=== PATIENT | male | born 1960 | race Caucasian/White ===

== ENCOUNTER → 2017-09-09 | Emergency (ER) | payer OTHER ==
[~2017-09-09] VITALS: Ht 180.3 cm; Wt 66.7 kg
[~2017-09-09] MED LIST: BACTRIM DS TAB1 EACH PO; CANABIS OIL; CEPHALEXIN500 MG PO; DOC-Q-LACE100 MG PO; LEVAQUIN750 MG PO; MIRALAX17 GM PO; MS CONTIN60 MG PO; NORCO 5-325 TA1 EACH PO; OXYCODONE HCL E10 MG PO
== END ==
LOC: ED 08:10
DX: K62.89 Other specified diseases of anus and rectum (principal); K76.9 Liver disease, unspecified; F17.200 Nicotine dependence, unspecified, uncomplicated; Z88.1 Allergy status to other antibiotic agents; Z91.030 Bee allergy status; Z79.899 Other long term (current) drug therapy
CPT/HCPCS: 74177; 80053; 81001; 82378; 85025; 96360; 99284; J7030; Q9967

== ENCOUNTER 2017-11-13 07:18 | Day surgery (SDC) | payer OTHER ==
[~2017-11-13] VITALS: Ht 177.8 cm; Wt 66.2 kg
--- NOTE | 2017-11-13 09:34 | NUR ---
11/13/17 0934 Heather Acosta PT ARRIVED TO PACU. NPA IN PLACE. X-RAY AT BEDSIDE (WAITING FOR ORDER)
[2017-11-13] MEDS ORDERED: IBUPROFEN600 MG PO (09:48)
[2017-11-13] MEDS ORDERED: MAPAP325 MG PO (09:49)
[2017-11-13] MEDS ORDERED: HYDROCODON-ACE1 EA10 PO (09:49)
--- NOTE | 2017-11-15 13:48 | OR ---
[facility] [address], [place] [address] Signed DATE OF OPERATION: 11/13/2017 SURGEON: Cheryl Chavez MD PREOPERATIVE DIAGNOSIS: Stage IV rectal cancer. POSTOPERATIVE DIAGNOSIS: Stage IV rectal cancer. PROCEDURES: 1. Placement of left subclavian Bard port catheter. 2. Surgeon-directed fluoroscopy. ANESTHESIA: Intravenous sedation with local (Josh Marcum CRNA). INDICATION: This 57-year-old white man, who is referred by Dr. Ragland for consideration of Port-A-Cath for treatment of stage IV rectal cancer. He is a primary patient of Arlette Mc PA-C. The patient has had rectal bleeding and was self-referred to the emergency room. Where he was noted to have a rectal mass. He was subsequently seen by Arlette Mc (in distinction to my initial note, which was incorrect), who then coordinated further evaluation and treatment. He was seen at [facility] and underwent a colonoscopy confirming a rectal cancer, considered not a surgical candidate at this time due to widely metastatic disease including hepatic, pulmonary, and other metastatic lesions. Referral to Dr. Ragland was undertaken for which chemotherapy as a palliative approach was presented. A port device is needed for chemotherapy. He understands the risks of placement of the port, including, but not limited to, bleeding, infection, pneumothorax, and other unforeseen complications. Understanding this, he wished to proceed. FINDINGS: The catheter was easily placed to the left subclavian approach, showing good function of the catheter at conclusion. Due to his thin body habitus, there is little problem in locating the port for access. DESCRIPTION OF PROCEDURE: The patient was brought to the operating room, placed in mild Trendelenburg position and Electronically Signed By: CHERYL CHAVEZ MD 11/15/17 1348 PATIENT NAME: YOLANDE MONTES OPERATIVE REPORT DATE OF : 60 PHYSICIAN: CHERYL CHAVEZ MD REPORT #: [id number] REPORT IS CONFIDENTIAL AND NOT TO BE RELEASED WITHOUT AUTHORIZATION [facility] [address], [place] [address] Signed the upper torso clipped and prepared with a chlorhexidine solution and draped sterilely. He received preoperative antibiotic Ancef. Sequential compression device stockings used and heparin subcutaneously administered. Intravenous sedation was induced after sterile preparation of the area and sterile draping. A 1% lidocaine was injected in the left infraclavicular space. Using the Seldinger technique, the left subclavian vein was percutaneously accessed on first pass showing dark nonpulsatile blood. A flexible J-wire was passed down the needle and the needle was removed. Fluoroscopy was used to confirm the wire in the right heart system. A transverse incision was made over the left pectoralis after infiltration of local anesthesia and a pocket created. At the site where the wire emanating from the chest wall, the wire site was incised with an #11 blade and subsequently dilator and peel-away sheath introducer passed over the wire. The wire and the dilator were removed and a previously inspected and irrigated Groshong-type catheter was passed down the peel-away introducer. The catheter was stabilized and the introducer removed fully. Aspiration on the catheter showed dark nonpulsatile blood. Fluoroscopy was then used once again after putting the patient in a neutral position and withdrawal of the catheter under direct visualization allowing for situated in the tip of the catheter in the superior vena cava area. The port device was partially secured to the pectoralis fascia. Using the tunneling device, the catheter was delivered to the pocket, trimmed to the appropriate length and secured to the port device within close collar per sleep lab technologist instructions. The port was secured to the pectoralis fascia, but at conclusion of that, it appeared that the catheter was a bit kinked. On that basis, the catheters were freed from the pectoralis fascia carefully controlled and redundant catheter transected and re-application to the port with the collar once again undertaken. It was secured once again to the pectoralis fascia without any kink in the catheter itself and accessed and found to be highly functional. The port site was then reapproximated with interrupted 2-0 Vicryl in the subcutaneous space closing the pocket completely. The skin was closed with running subcuticular 3-0 Vicryl. Steri-Strips were applied to the initial puncture site and the incision. The access to the port was undertaken percutaneously with angled Brown needle showing good withdrawal of blood and easy flushing with heparinized saline. A Mepilex silver sponge dressing was applied as was an OpSite. The patient was taken to recovery room in good condition. A postprocedure chest x-ray was performed, which showed the catheter to be in the superior vena cava and no evidence of complication of pneumothorax or other problem. Cheryl Chavez MD Electronically Signed By: CHERYL CHAVEZ MD 11/15/17 1348 PATIENT NAME: YOLANDE MONTES OPERATIVE REPORT DATE OF : 60 PHYSICIAN: CHERYL CHAVEZ MD REPORT #: [id number] REPORT IS CONFIDENTIAL AND NOT TO BE RELEASED WITHOUT AUTHORIZATION [facility] [address] [place], [place] [address] Signed /[facility] /[id number] cc: Arlette Mc PA-C Electronically Signed By: CHERYL CHAVEZ MD 11/15/17 1348 PATIENT NAME: YOLANDE MONTES OPERATIVE REPORT DATE OF : 60 PHYSICIAN: CHERYL CHAVEZ MD REPORT #: [id number] REPORT IS CONFIDENTIAL AND NOT TO BE RELEASED WITHOUT AUTHORIZATION
[2017-11-21] MEDS ORDERED: OXYCONTIN60 MG PO (09:42)
[2017-12-05] MEDS ORDERED: ONDANSETRON ODT8 MG PO (09:35)
[2017-12-05] MEDS ORDERED: DEXAMETHASONE4 MG PO (09:36)
[2017-12-05] MEDS ORDERED: LORAZEPAM1 MG PO (09:38)
[2018-01-30] MEDS ORDERED: OXYCODONE HCL10 MG PO (09:30)
[2018-02-27] MEDS ORDERED: AMLODIPINE BESY10 MG PO (09:35)
[2018-02-27] MEDS ORDERED: MIRALAX17 GM PO (09:36)
== END 2017-11-13 10:50 | disposition home or self-care (01) ==
LOC: DS 07:18 → OPS 07:18 → DS 08:30 → OPS 08:30
PROVIDERS: Surgery
PROC: B517YZA Fluoroscopy of Left Subclavian Vein using Other Contrast, Guidance (ICD-10-PCS; 2017-11-13)
PROC: 3E03305 Introduction of Other Antineoplastic into Peripheral Vein, Percutaneous Approach (ICD-10-PCS; 2017-11-13)
PROC: 05H633Z Insertion of Infusion Device into Left Subclavian Vein, Percutaneous Approach (ICD-10-PCS; principal; 2017-11-13 08:30)
DX: C20 Malignant neoplasm of rectum (principal); F17.210 Nicotine dependence, cigarettes, uncomplicated; K21.9 Gastro-esophageal reflux disease without esophagitis; Z88.1 Allergy status to other antibiotic agents; Z91.030 Bee allergy status; Z98.890 Other specified postprocedural states
CPT/HCPCS: 00532; 71045; 77001; C1788; J0690; J1644; J2250; J2704; J3010; J7120

== ENCOUNTER 2018-05-13 13:57 | Emergency (ER) | payer OTHER ==
[~2018-05-13] VITALS: Ht 177.8 cm; Wt 54.1 kg
[~2018-05-13 13:57] MED LIST changes: +AMLODIPINE BESY10 MG PO; +DEXAMETHASONE4 MG PO; +HYDROCODON-ACE1 EA10 PO; +IBUPROFEN600 MG PO; +LORAZEPAM1 MG PO; +MAPAP325 MG PO; +ONDANSETRON ODT8 MG PO; +OXYCODONE HCL10 MG PO; +OXYCONTIN60 MG PO
[2018-05-13] MEDS ORDERED: LACTULOSE10 GM/15 M PO (17:21)
== END 2018-05-13 17:40 | disposition home or self-care (01) ==
LOC: ED 13:57
DX: K59.01 Slow transit constipation (principal); Z87.891 Personal history of nicotine dependence; Z88.8 Allergy status to other drugs, medicaments and biological substances; Z79.899 Other long term (current) drug therapy
CPT/HCPCS: 74022; 80053; 81001; 83690; 85025; 85610; 85730; 96360; 96361; 99284; J7030

== ENCOUNTER 2018-06-10 23:28 | Observation (INO) | payer OTHER ==
[~2018-06-10] VITALS: Ht 177.8 cm; Wt 61.5 kg
--- OUTSIDE RECORDS SUMMARY | ~2018-06-10 | XMS | Clinical Summary ---
Demographics + + + | Address | [address] | | | [place] [address] | + + + | Home Phone | | + + + | Preferred Language | Unknown | + + + | Marital Status | Unmarried Domestic Partner | + + + | Episcopalian Affiliation | CHR | + + + | Race | White | + + + | Ethnic Group | Not or | + + + Author + + + | Author | [facility] | + + + | Organization | [facility] | + + + | Address | Unknown | + + + | Phone | Unavailable | + + + Support + + +---------+ + | Name | Relationship | Address | Phone | + + +---------+ + | Sandra Cramer | ECON | Unknown | | + + +---------+ + | Samson Patiño | ECON | Unknown | | + + +---------+ + Care Team Providers + +------+ + | Care Washing Tub Operator Name | Role | Phone | + +------+ + | Arlette Mc PA-C | PP | | + +------+ + Source Comments GOMEZ is fully live on both [facility] and [facility] InPatient.[facility] Allergies + + + + + + | Active Allergy | Reactions | Severity | Noted | Comments | | | | | Date | | + + + + + + | Azithromycin | Dizziness | | 10/02/20 | Didn't feel right | | | | | 17 | | + + + + + + | Hymenoptera | Hives | | 12 | | | Allergenic Extract | | | 17 | | + + + + + + Current Medications + + +--------+---------+------+------+-------+ | Prescription | Sig. | Disp. | Refills | Star | End | Statu | | | | | | t | Date | s | | | | | | Date | | | + + +--------+---------+------+------+-------+ | oxyCODONE | | | | 11/2 | | Activ | | (immediate release) | | | | 8/20 | | e | | 10 mg oral tablet | | | | 17 | | | + + +--------+---------+------+------+-------+ | POLYETHYLENE | Take by mouth. | | | | | Activ | | GLYCOL 3350 (MIRALAX | | | | | | e | | ORAL) | | | | | | | + + +--------+---------+------+------+-------+ | DOK 100 mg oral | Take 100 mg by mouth | | 0 | 11/2 | | Activ | | capsule | once daily. | | | 9/20 | | e | | | | | | 17 | | | + + +--------+---------+------+------+-------+ | morphine ER (MS | Take 1 tablet by | 60 | 0 | 01/0 | | Activ | | CONTIN) 60 mg oral | mouth every twelve | tablet | | 3/20 | | e | | tablet extended | hours. 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) | 10/25/2017 | + + + | Rectal cancer metastasized to liver (HCC) | 10/03/2017 | + + + + + | Overview: MSi intact by IHC | + + Family History + + +------+ + | Medical History | Relation | Name | Comments | + + +------+ + | Hypertension | Father | | | + + +------+ + | Stroke | Father | | | + + +------+ + | Colon Cancer | Maternal | | or rectal cancer | | | Grandfath | | | | | er | | | + + +------+ + | Liver Disease | Maternal | | | | | Grandfath | | | | | er | | | + + +------+ + | Prostate Cancer | Maternal | | | | | Grandfath | | | | | er | | | + + +------+ + | Other | Mother | | varicose veins | + + +------+ + | Liver Disease | Sister | | | + + +------+ + + +------+ + + | Relation | Name | Status | Comments | + +------+ + + | Father | | | | + +------+ + + | Maternal Grandfather | | | | + +------+ + + | Mother | | Alive | | + +------+ + + | Sister | | | | + +------+ + + Social History + + + +--------+------+ | Tobacco Use | Types | Packs/Day | Years | Date | | | | | Used | | + + + +--------+------+ | Current Every Day | Cigarettes | 0.1 | 40 | | | Smoker | | | | | + + + +--------+------+ + +---+---+---+ | Smokeless Tobacco: | | | | | Never Used | | | | + +---+---+---+ + + +---------+ + | Alcohol Use | Drinks/We | oz/Week | Comments | | | ek | | | + + +---------+ + | No | | | | + + +---------+ + + + + | Sex Assigned at | Date Recorded | | | | + + + | Not on file | | + + + Last Filed Vital Signs + + + + | Vital Sign | Reading | Time Taken | + + + + | Blood Pressure | 139/94 | 10/24/2017 4:20 PM PST | + + + + | Pulse | 62 | 10/24/2017 4:20 PM PST | + + + + | Temperature | 36.5 C (97.7 F) | 10/24/2017 4:20 PM PST | + + + + | Respiratory Rate | 16 | 10/24/2017 4:20 PM PST | + + + + | Oxygen Saturation | 99% | 10/24/2017 4:20 PM PST | + + + + | Inhaled Oxygen | - | - | | Concentration | | | + + + + | Weight | 68.9 kg (151 lb 14.4 | 10/24/2017 4:20 PM PST | | | oz) | | + + + + | Height | 177.8 cm (5' 10") | 10/24/2017 4:20 PM PST | + + + + | Body Mass Index | 21.8 | 10/24/2017 4:20 PM PST | + + + + Plan of Treatment + + + + + | Health Maintenance | Due Date | Last Done | Comments | + + + + + | INFLUENZA VACCINE | | | | | (FLU SHOT) | 8 | | | + + + + + Results Not on filefrom Last 3 Months Insurance + +--------+ +--------+-------+---------+ | Payer | Benefi | Subscriber | Type | Phone | Address | | | t Plan | ID | | | | | | / | | | | | | | Group | | | | | + +--------+ +--------+-------+---------+ | JUNIOR HIGH MATH TEACHER MEDICAID | JUNIOR HIGH MATH TEACHER | xxxxxxxx | Medica | | | | | [place] | | id | | | | | [place] | | | | | + +--------+ +--------+-------+---------+ + +--------+ +--------+ + + | Guarantor Name | Accoun | Relation to | Date | Phone | Billing Address | | | t Type | Patient | of | | | | | | | | | | + +--------+ +--------+ + + | YOLANDE PATIÑO | Person | Self [birth year] Home: | [address] | | | al/Fam | | 1960 | [phone] | [place] [address] | | | felix | | | [phone] | | + +--------+ +--------+ + +
--- OUTSIDE RECORDS SUMMARY | ~2018-06-10 | XMS | Clinical Summary ---
Demographics + + + | Address | [address] | | | [place] [address] | + + + | Home Phone | | + + + | Preferred Language | Unknown | + + + | Marital Status | Unmarried Domestic Partner | + + + | Advent Affiliation | CHR | + + + | Race | White | + + + | Ethnic Group | Not or | + + + Author + + + | Author | [facility] | + + + | Organization | [facility] | + + + | [...] Team Providers + +------+ + | Care Electrical Power Engineer Name | Role | Phone | + +------+ + | Arlette Mc PA-C | PP | | + +------+ + Source Comments [facility] and [facility] InPatient.[facility] Allergies + + + + + + [...] | | | + +--------+ +--------+-------+---------+ | ACTIVITIES ASSISTANT MEDICAID | ACTIVITIES ASSISTANT | xxxxxxxx | Medica | | | [...] Self | [birth year] | Home: | [address] | | | al/Fam | | 1960 | [phone] | [place] [address] | | | felix | | | [phone] | | + +--------+ +--------+ + +
--- OUTSIDE RECORDS SUMMARY | ~2018-06-10 | XMS | Clinical Summary ---
Demographics + + + | Address | [address] | | | [place] [address] | + + + | Home Phone | | + + + | Preferred Language | Unknown | + + + | Marital Status | Unmarried Domestic Partner | + + + | Mosque Affiliation | CHR | + + + | Race | White | + + + | Ethnic Group | Not or | + + + Author + + + | Author | [facility] | + + + | Organization | [facility] | + + + | [...] Team Providers + +------+ + | Care Product Safety Professional Name | Role | Phone | + +------+ + | Arlette Mc PA-C | PP | | + +------+ + Source Comments GOME[facility] is fully live on both [facility] and [facility] InPatient.[facility] Allergies + + + + + + [...] | | | + +--------+ +--------+-------+---------+ | IV THERAPY NURSE MEDICAID | IV THERAPY NURSE | xxxxxxxx | Medica | | | [...] Self | [birth year] | Home: | [address] | | | al/Fam | | 1960 | [phone] | [place] [address] | | | felix | | | [phone] | | + +--------+ +--------+ + +
[~2018-06-10 23:28] MED LIST changes: +LACTULOSE10 GM/15 M PO
--- NOTE | 2018-06-11 03:35 | NUR ---
report was received from anamaria ackerman and pt arrives to [facility] by [facility]ine and is assisted in transfering to hospital bed with 3 person assist. pt denies pain or nausea at this time. Assessment completed and pt denies needs/ concerns. pt family also at bedside. call light and fresh ice water in reach. pt to receive ns running at 125ml/hr to L fa 18ga IV. Pt agrees to use call light if symptoms develop.
--- NOTE | 2018-06-11 04:22 | NUR ---
PT REPORTS ELEVATED PAIN LEVEL. DR MESSER NOTIFIED AND NEW ORDER RECEIVED TO CONTINUE DILAUDID 0.5-1MG IVP [id number].
--- NOTE | 2018-06-11 04:40 | NUR ---
PT RESTING IN BED, REPORTS PAIN OF 5/10. 1MG DILAUDID ADMINISTERED SLOW IVP. PT REPORTS NEED TO VOID BUT STATES HE WANTS TO WAIT A FEW MINUTES BEFORE HE TRIES ONB HIS OWN WITH URINAL IN BED. CALL LIGHT AND FRESH ICE WATER IN REACH. FAMILY AT BEDSIDE.
--- NOTE | 2018-06-11 05:34 | NUR ---
PT WAS ADMITTED THIS MORNING FROM ER FOR BOWEL OBSTRUCTION AND COLON CX WITH METS TO LIVER AND LUNGS. PT'S CONDITION IS SAID TO BE TERMINAL AND WHILE IN ER PT ELECTED TO BE PLACED ON COMFORT MEASURES AND TO BECOME DNR WITH PLANS TO SPEAK WITH HOSPICE IN MORNING. . PT REPORTS ABDOMINAL PAIN WHICH IS CONTROLLED WITH 1MG IVP DILAUDID PRN. PT HAS NOT REPORTED NAUSEA SINCE RECEVING 8MG ZOFRAN IN ER. PT HAS 18GA LFA IV WITH 125ML/HR INFUSING. PT HAS HAD FAMILY AT BEDSIDE.
--- NOTE | 2018-06-11 06:08 | NUR ---
pt resting in bed supine [id number]. pt reports abdominal pain of 5/10 so prn dilaudid 1mg administered slow ivp. Pt denies having any furhter needs. call light and h2o in reach and family at bedside.
--- NOTE | 2018-06-11 07:15 | NUR ---
REPORT RECIEVED FROM SYLVIA DUNAWAY. PT ASLEEP BUT FAMILY AWAKE AND INTRODUCED MYSELF. THEY DENIED CONCERNS ATT.
--- NOTE | 2018-06-11 07:42 | NUR ---
PT AWAKE AND FAMILY CALLED FOR PAIN MEDICATION. PT UP TO RESTROOM UPON ENTERING ROOM. REMINDED THAT THEY SHOULD CALL FOR PT TO GET OUT OF BED WITH ASSISTANCE. PT HAD TRIED TO USE URINAL AND SPILLED IN BED. ASSISTED FAMILY WITH BEDCHANGE.
--- NOTE | 2018-06-11 07:57 | NUR ---
ASSISTED PT TO DRESS AND OUT OF BATHROOM. ADMINISTERED 1MG DILAU[address]ID[address] IN ROOM TO ASSESS.
--- NOTE | 2018-06-11 09:40 | NUR ---
PT RATED PAIN 10/10 AND WAS QUITE RESTLESS. ADMINISTERED IV DILAUIDID FOR PAIN CONTROLL FRANCHESKA AND OXY AND FENTYL PATCH FOR EXTENDED CONTROL. PT ATTEMPTING TO USE URINAL IN BED. MANY FAMILY AND FRIENDS IN ROOM. PT APPEARS MORE COMFORTABLE AFTER IV MEDS. DISCUSSED SANDOSTATIN WITH ALONDRA LINDSAY AND DILUTED IN 10ML NS AND RAN OVER 8 MINUTES.
--- NOTE | 2018-06-11 10:22 | NUR ---
PT FAMILY IN ROOM. WILL CHECK WITH PT LATER TO SEE IF HE WOULD LIKE A BEDBATH.
--- NOTE | 2018-06-11 11:13 | NUR ---
MED REC COMPLETE
--- NOTE | 2018-06-11 12:17 | NUR ---
PT RATES PAIN 4\10, IMPROVED CONTROL SINCE THIS MORNING. PT STATES THAT IT IS ANNOYING AND ASKED FOR DILAUIDID. FAMILY IN ROOM AND DENIES CONCERNS. PERMISSION GIVEN BY FAMILY AND PT TO TALK TO GIRLFRIEND CHU ON PHONE ABOUT CONDITION OF PT.
--- NOTE | 2018-06-11 13:23 | NUR ---
PT IN BED, STRUGGLING TO COMMUNICATE CLEARLY. PT WAS ABLE TO LET ME KNOW HE WAS IN PAIN, AND I ALERTED HIS RN. LOTS OF FAMILY IN ROOM. MYAR. KALEE ENTERED , EXTENDED A BLESSING, WILL RETURN.
--- NOTE | 2018-06-11 13:50 | NUR ---
FAXED CHART NOTES TO [facility] INCLUDING FACESHEET, ER NOTES, H AND P THAT IS WHAT WAS AVAILABLE AT THIS TIME. ALSO SENT THE ORDER FOR THE HOSPICE CONSULT. RECIEVED FAX CONFIRMATION ON THIS.
--- NOTE | 2018-06-11 14:22 | NUR ---
PT FAMILY CALLED TO SAY HIS PAIN WAS CLIMBING AGAIN. ADMINISTERED DILAUIDID. ADVISED TO CALL WHEN IT STARTS TO CLIMB OVER A 4 WHICH IS HIS ACCEPTABLE LEVEL AND NOT WAIT UNTIL ITS 9 OR 10
--- NOTE | 2018-06-11 15:58 | NUR ---
PT RESTING COMFORTABLY WITH EYES CLOSED IN BED. RESP RATE EVEN AND UNLABORED. MULTIPLE FAMILY/FRIENDS AT BEDSIDE. WILL CONTINUE TO ASSESS PAIN MANAGEMENT/PRN MEDICATION NEEDS HOURLY. IV INFUSING NS @ 125 IN LFA. NO NEEDS AT THIS TIME. ENCOURAGED FAMILY TO NOTIFY STAFF OF PATIENT NEEDS. AT 1330 THIS RN AND KRISTIE RN TAKING OVER PATIENT CARE FROM DANNY WARD. INTRODUCED SELVES TO FAMILY AND UPDATED WHITE BOARD.
--- NOTE | 2018-06-11 16:56 | NUR ---
Hospice Consult. Spoke with patient family, primarily son, Samson, as pt's girlfriend, Lisa, home resting. Pt is drowsy as he has just been medicated. Hospice/comfort care explained and instructed on care in the home and no longer seeking treatment. Family and patient state understanding and request Hospice. Will contact Dr Sanchez for Certification of Terminal illness. Will contact Lisa Martino [phone] for equipment needs. Will talk with Dr. Franco tomorrow to see plan for dc. lexy Abreu Car Clerk [facility].
--- NOTE | 2018-06-11 17:10 | NUR ---
1MG DILAUDID BEING ADMINISTERED NEARLY HOURLY FOR PAIN CONTROL. LAST DOSE GIVEN AT 1700.
--- NOTE | 2018-06-11 17:38 | NUR ---
TALKED WITH NINA THIS AFTERNOON AND SHE TOLD ME SHE WOULD COME TALK WITH THE PT AND THE FAMILY ABOUT 30 AFTER I TALKED WITH HER OR AROUND 1615 TO 1630 I WENT AND INFORMED THE FAMILY OF THIS AND THEY WERE OK WITH THIS.
--- NOTE | 2018-06-11 18:36 | NUR ---
PATIENT IS ON COMFORT CARE MEASURES. RECEIVING 1 MG OF DILADUDID EVERY HOUR. IS AWAKE OCCATIONALLY, BUT SLEEPS FREQUENTLY. FAMILY/FRIENDS AT BEDSIDE, AND COMMUNICATE WHEN PAIN MEDICATION IS NEEDED. NORMAL SALINE AT 125. FENTYNAL PATCH, LEFT SHOULDER. POOR ORAL INTAKE. CLEAR LIQUID DIET.
--- NOTE | 2018-06-11 19:20 | NUR ---
PT RESTING SUPINE IN BED, REPORTS ABD PAIN. SARAHRN TO BRING PT PAIN MEDICATION. PT ALSO GIVEN URINAL PER HIS REQUEST. CALL LIGHT AND H20 IN REACH AND PT DENIES FURTHER NEEDS AT THIS TIME. FAMILY AT BEDSIDE.
--- NOTE | 2018-06-11 20:44 | NUR ---
PT RESTING SUPINE IN BED , RR18, FACIAL GRIMMACE NOTED AND PT SHIFTING BACK AND FORTH IN BED. PT APPEARS TO BE IN PAIN AND FACES PAIN SCORE IS 6/10. IV DILAUDID 1MG ADMINISTERED SLOW IVP. URINAL PROVIDED PER PT REQUEST. CALL LIGHT/H20 IN REACH AND NO FURTHER REQUESTS VOICED. FAMILY AT BEDSIDE.
--- NOTE | 2018-06-11 22:04 | NUR ---
PT RESTING IN BED, EYES CLOSED AND RESPIRATIONS EVEN AND UNLABORED. RR16. CALL LIGHT AND O2 IN REACH. FMAILY AT BEDSIDE. PT APPEARS TO BE SLEEPING COMFORTABLY.
--- NOTE | 2018-06-11 22:45 | NUR ---
PT RESTING SUPINE IN BED, PT GRIMMAACING AND FACES PAIN SCALE IS 6/10. PRN IV PAIN MEDICATION ADMINISTERED. CALL LIGHT AND H20 IN REACH. PT PROVIDED WITH URINAL PER REQUEST. FAMILY AT BEDSIDE. NO FURTHER NEEDS VOICED.
--- NOTE | 2018-06-12 00:20 | NUR ---
PT RESTING IN BED, REPORTS INCREASED ABD PAIN AND REQUESTS WARM BLANKETS. 1MG DILAUDID ADMINISTERED SLOW IVP AND PT PROVIDED WITH 2 WARM BLANKETS. PT APPEARS COMFORTABLE AND DENIES FURTHER REQUESTS. CALL LIGHT IN REACH AND FAMILY AT BEDSIDE.
--- NOTE | 2018-06-12 03:27 | NUR ---
PT RESTING IN BED, REPORTS INCREASED PAIN TO ABDOMEN. 1MG PRN IV DILAUDID ADMINISTERED PER PT REQUEST. PT DENIES HAVING ANY FURTHER CONCERNS OR REQUESTS. FAMILY SLEEPING AT BEDSIDE AND PT'S CALL LIGHT AND H20 ARE WITHIN REACH.
--- NOTE | 2018-06-12 05:37 | NUR ---
PT REPORTS INCREASED ABDOMINAL PAIN. PT REQUESTS AND RECEIVED PRN IV DILAUDID. RR16. CALL LIGHT/H20 IN REACH AND FAMILY AT BEDSIDE.
--- NOTE | 2018-06-12 07:01 | NUR ---
pt resting in bed reports increased abd pain so iv dilaudid administered. Pt's bedding also appears soiled with urine so pt assisted by academic hospitalist's in changing attends and bedding. call light and h20 in reach. pt denies having any further concerns or requests.
--- NOTE | 2018-06-12 08:31 | NUR ---
patient moved up in bed and given oral pain medication as scheduled at this time. patient not wanting to take a shower at this time. Family remains in the room and clear liquid tray at bedside.
--- NOTE | 2018-06-12 09:14 | NUR ---
PATIENT ENGINEERING LABORATORY TECHNICIAN STARTED AND WITNESSED BY DANNY WARD. PATIENT INSTRUCTED ON HOW TO USE THE ENGINEERING LABORATORY TECHNICIAN AT THIS TIME. FENTANYL PATCH REMOVED AND DISCARDED AND NEW ONE APPLIED, 50 MCG. TO THE LEFT SHOULDER.
--- NOTE | 2018-06-12 09:22 | NUR ---
PATIENT REFUSING CATHATER AT THIS TIME, DAUGHTER IN THE ROOM WOULD LIKE THE PATIENT TO HAVE THE CATHATER FOR PATIENT COMFORT AND URINAL IS BETWEEN PATIENTS LEGS CURRENTLY EMPTY BUT PATIENT REFUSES STILL. WILL CONTINUE TO MONITOR.
--- NOTE | 2018-06-12 09:55 | NUR ---
RECIEVED A PHONE CALL FROM ONE OF THE PHYSICAL MEDICINE TEACHER/FURNACE ERECTOR STATING THAT THE PT GIRL-FRIEND HAD CALLED AND TALKED WITH HER AND REQUESTED THAT SHE NOT TELL THE PT FAMILY THAT SHE CALLED OR WHAT SHE WAS TELLING HER. SHE SAID THAT SHE WAS NOT ABLE TO TAKE THE PT BACK HOME AND COULDN'T CARE FOR HIM AT THIS POINT IN HIS ILLNESS--I JUST CAN'T DO THIS. SHE IS PART OF THE PLAN FOR HOSPICE DC AND HER STATING THAT SHE COULDN'T AND WOULDN'T CARE FOR HIM SHE AGAIN WANTED THE PROMISE THAT WE WOULD NOT TELL THE FAMILY. I TOLD THE PHYSICAL MEDICINE TEACHER THAT I WOULD DEAL WITH IT AND NOT TO WORRY ABOUT IT. I THEN WENT AND TALKED WITH SHANT- THE PT SON ASKED IF I HAD PERMISSION TO TALK OPENLY WITH JONNY ALEJANDRO ABOUT THE PT, HE STATED YES. WE DISCUSSED THE PLAN OF CARE FAR GOING HOME FOR THE PT, AND HE STATED THEY PLANNED ON RETURNING HIM TO HIS HOME WITH HIS GIRLFRIEND AND THEY WOULD BE TAKING TURNS CARING FOR HIM IS WHAT THE PLAN IS AT THIS TIME. I STARTED TO SAY SOMETHING AND HE SAID SHE TOLD YOU SHE CAN'T DO IT DIDN'T SHE. I AGREED AND HIS UNCLE CHERYL STATED WELL NOT EVERYONE CAN DO THAT. WELL HE STATES WE WILL HAVE TO HAVE ANOTHER PLAN. I AM GOING TO [facility] HE STATES. HE SAID HE WOULD CALL ME WITH AN UPDATE OF THEIR PLAN SOON THEY KNOW.
--- NOTE | 2018-06-12 10:09 | NUR ---
PATIENT MOVED UP IN BED, LINEN UNDER HIM AND CHUX CHANGED, TOPHER CARE DONE AND URINAL EMPTIED. PATIENT REMINDED THAT HE NEEDS TO USE THE COMPUTER NETWORKER FOR PAIN CONTROL. HE WAS GIVEN A SIP OF WATER. HE DENIES OTHER NEEDS AT THIS TIME.
--- NOTE | 2018-06-12 11:48 | NUR ---
PATIENT RESTING WITH EYES CLOSED, FAMILY STILL PRESENT IN THE ROOM, ALL DENY ANY QUESTIONS OR CONCERNS AT THIS TIME. PATIENT WOULD LIKE TO POSSIBLE HAVE A BED BATH WITH HAIR WASHED THIS AFTERNOON, HE STILL WOULD NOT LIKE THE CLEANING PLACED.
--- NOTE | 2018-06-12 13:05 | NUR ---
PT NOW ON DEBT COUNSELOR PUMP, BUT APPEARS HE IS NOT PUSHING THE BUTTON HARD ENOUGH TO ADMINISTER MEDS. SON SHANT IS STAYING PRETTY CLOSE WELL OTHER FAMILY. DECISION HAS BEEN MADE TO USE [facility] WHEN NEED ARISES AND CREMATION HAS BEEN CHOSEN BY PT. PT CAME TO MOMENTARILY, AND APPEARED TO BE IN SOME DISCOMFORT. I ENCOURAGED HIM TO USE HIS PUMP HE ACKNOWLEDGED AND WAS HANDED IT-BUT DIDNOT PUSH. END OF LIFE INFO PLACED IN PT'S CHART. EXTENDED A BLESSING, WILL FOLLOW NEEDED
--- NOTE | 2018-06-12 13:56 | NUR ---
PT GIRLFRIEND APPROACHED NURSES STATION AND STATED "HE WILL NOT PUSH THE BUTTON MUCH HE NEEDS, CAN WE, I WILL JUST PUSH THE BUTTON FOR HIM" EXPLAINED THAT ONLY THE PT CAN PUSH THE TOOL CHECKER BUTTON. SHE ASKED IF WE COULD MAKE IT CONTINUOUS. EXPLAINED THAT THIS IS THE ORDER RIGHT NOW AND HE IS RATING HIS PAIN SATISFACTORILLY. GIRLFRIEND THEN ASKED "CAN YOU GIVE HIM MORE AND MAKE HIM PASS AWAY MORE QUICKLY I HATE TO SEE HIM SUFFER ." EXPLAINED THAT THAT IS ILLEGAL AND WE CAN NOT AND WOULD NOT DO THAT. THE GOAL IS TO MAKE HIM COMFORTABLE. AGAIN REITTERATED THAT ONLY THE PT CAN PUSH THE BUTTON.
--- NOTE | 2018-06-12 14:16 | NUR ---
FAMILY BROUGHT A CONTAINER OF FLAVORED WATER TO THE FRONT COUNTER BECAUSE THE GIRLFRIEND HAD PUT SOMETHING IN THE WATER FOR THE PATIENT TO DRINK, FAMILY CONCERNED THAT SHE IS ATTEMPTING TO MEDICATE HIM. WATER THROWN AWAY BY THIS RN.
--- NOTE | 2018-06-12 14:45 | NUR ---
DISCUSSION WITH CHERYL ADKINS, AND HIS BROTHER RONIT ABOUT WHAT HAD BEEN GOING ON AND ALL THE SAFETY CONCERNS WE HAD REGARDING THE INFORMATION WE HAVE HEARD FROM [facility] HERSELF AND FROM THE FAMILY. INFORMED THEM WE WERE CONCERNED FOR [place] SAFETY AND WHAT ADDRESS WOULD HE BE GOING TO-- THEY STATED OUR MOMS HOME [place] [id number], [place], [place]. TO HIS MOTHERS HOME. THEY STATED THEY WEREN'T SURE HOW TO GET HIM THERE, I EXPLAINED THAT WE COULD GET SOME TRANSPORT ARRANGED FOR HIM TO RETURN HOME. THEY ALSO QUESTIONED ABOUT GETTING A CAREGIVER/NURSE TO BE ABLE TO HELP CARE FOR HIM WHEN HIS MOM IS TAKING HER TURN WITH HIM. EXPLAINED THAT WE DO NOT HAVE A LIST OF NURSE'S BUT WE DO HAVE A COMMUNITY CAREGIVER LIST THAT WE COULD SUPPLY THEM WITH. (THIS WAS OBTAINED AND GIVEN TO THEM BUT SERVICE ARCHITECT NIKKI GALLEGOS.) MENTIONED TO THE FAMILY THAT ALL THINGS THAT WENT ON THIS AFTERNOON. I FELT I NEEED TO CALL ADULT PROTECTIVE SERVICES. THEY THOUGHT THIS WOULD BE GOOD IDEA.
--- NOTE | 2018-06-12 14:48 | NUR ---
FAMILY MEETING WITH ENMANUEL AT THIS TIME REGARDING CARE AT HOME AND FINDING AN PV DESIGN ENGINEER TO HELP WITH 24 HOUR CARE AT HOME. PATIENT REMAINS ON RA AND IS RESTING WITH HOB ELEVATED. NO S/S OF RESPITATORY DISTRESS AT THIS TIME.
--- NOTE | 2018-06-12 15:29 | NUR ---
DOCTOR GUI IN THE ROOM TO SPEAK WITH THE FAMILY AT THIS TIME, FAMILY IN THE ROOM TO DISCUSS COST OF TRANSPORT TO HOME
--- NOTE | 2018-06-12 16:00 | NUR ---
CALLED ADULT PROTECTIVE SERVICES AND TALKED WITH MARGARITA ZUNIGA REGARDING THE EVENTS OF THE DAY WITH REGARD TO PT'S GIRLFRIEND AND ALL THE THINGS SHE HAS SAID. STAFF AND I ARE CONCERNED FOR THE SAFETY OF THE PT AT THIS POINT WELL THE FAMILY IS CONCERNED. TALKED WITH Amna ALMANZAR RN SYSTEMS ANALYSIS MANAGER OF NURSING REGARDING THIS ALSO.
--- NOTE | 2018-06-12 16:15 | NUR ---
TALKED WITH IT BUSINESS PROCESS ARCHITECT ABOUT THE CALL TO APS AND ADM. ZOILA STATED IF PROBLEMS NOTIFY SECURITY AND OR POLICE. ADVISED NOT TO LET THE GIRLFRIEND BE ALONE WITH THE PT (WATCH THE PT PUSH PUMP) WHILE SHE IS THERE. FAMILY IS CONCERNED FOR THE PT SAFETY FROM HER.
--- NOTE | 2018-06-12 16:40 | NUR ---
HOSPICE UPDATE: Awaiting authorizatin from [facility]. Also notified of possible diversion of meds in the home and pcg making statements she will give the patient extra meds to hurry his along. Called and spoke son, Samson, informed by Samson he is the POA and patient will be going to his mom's home. Update given to Dr. Franco and pt. will stay tonight and plan for nonemergent transfer tomorrow. Plan to send this patient with SQ pain pump and fentanyl patches due to risk of diversion.
--- NOTE | 2018-06-12 17:08 | NUR ---
CLEANING PLACED AT THIS TIME, 5OO MLS OUT OF DARK YELLOW URINE, PATIENT TURNED TO THE LEFT LATERAL SIDE AT THIS TIME AND TOPHER CARE DONE. DOCTOR UPDATED.
--- NOTE | 2018-06-12 17:21 | NUR ---
TALKED WITH PT SON SHANT AND HIS LORENZO AND LET THEM KNOW I NOTIFIED APS. SHANT SAID HE IS VERY GRATEFUL OF THAT BECAUSE HE THINKS SHE IS TRYING TO GET RID OF HIS DAD AT THIS POINT AND HE WOULD LIKE A CLOSE WATCH ON GIRLFRIENDS HANDS WHEN SHE IS VISITING SHE WILL USE THE PLUNGER TO GIVE HIM MORE MEDS.
--- NOTE | 2018-06-12 17:58 | NUR ---
PATIENT C/O NAUSEA, ZOFRAN 4MG GIVEN IV AT THIS TIME, FAMILY CONCERNED THAT HE IS NOT GOING TO BE ABLE TO PUSH THE SALES RELATIONSHIP MANAGER PUMP THROUGH THE NIGHT HE IS BECOMING MORE SLEEPY WITH PAIN MEDICATION WILL NOTIFY .
--- NOTE | 2018-06-12 19:02 | NUR ---
DOCTOR NOTIFIED THAT THE PATIENT'S FAMILY WOULD LIKE CONTINUOUS DESTINATION SPECIALIST INSTEAD ON DEMAND
--- NOTE | 2018-06-12 20:00 | NUR ---
AWAKE, COMFORTABLE, FENTANYL PATCH L ARM IN PLACE, CONSULTING PROPERTY MANAGER BEING USED BY PT PRN. F/C PATENT. FAMILY AT BEDSIDE, PT STATUS COMFORT MEASURES ONLY HOSPICE TRAY IN ROOM BROUGHT BY KITCHEN.
--- NOTE | 2018-06-12 21:34 | NUR ---
ROUNDED CHARGE. PATIENT IS RESTINGI N BED WITH EYES CLOSED, RR 15. FAMMILY IN THE ROOM. PATIENT DENIES ANY COMMENTS, QUESTIONS, OR CONCERNS. CALL LIGHT IN REACH.
--- NOTE | 2018-06-12 22:06 | NUR ---
PATIENT WAS AGITATED AND RESTLESS. PRN ATIVAN GIVEN PER ORDER. PATIENT DENIES ANY FURTHER NEEDS. FAMILY REMAINS ON THE ROOM. CALL LIGHT IN REACH.
--- NOTE | 2018-06-12 22:25 | NUR ---
PT RECEIVED ATIVAN FOR ANXIETY/DISCOMOFRT, EFFECTIVE, RESTING, NO RESP DISTRESS AT THIS TIME. EYES CLOSED, FAMILY AT BEDSIDE
--- NOTE | 2018-06-13 00:43 | NUR ---
RESTING, NO DISTRESS, PERMIT AGENT AN DIVF PATENT. CALL LIGHT AT HANDS REACH, FAMILY IN ROOM. PT ON COMFORT STATUS CARE
--- NOTE | 2018-06-13 02:30 | NUR ---
Restless, anxious, repositioned in bed, Medictaed with Ativan 1mg IV. ivf infusing, RESPIRATORY CARE PROGRAM DIRECTOR inplace, f/c patent. Pt turns self in bed. Call light and fluids withing hands reach. Family in room
--- NOTE | 2018-06-13 05:33 | NUR ---
RESTOMG, NO DISTRESS
--- NOTE | 2018-06-13 05:41 | NUR ---
pt on comfort measures only. Has had only small sips of fluid earlier on this shift. Aspiration precautions in place. Pt turns self in bed, f/c patent, draining dark yellow urine. Used 24mg of Morphine BLAST FURNACE HELPER with fair to good pain control, Fentanyl patch in place left arm. Pt has received 2 doses of 1mg Lorazepam as pt was very anxious and restless. Ativan has been very effective controlling restlessness and pain. No resp distress this shift, has been comfortable. No BM, Family in room.
--- NOTE | 2018-06-13 07:04 | NUR ---
Received shift report from shift lab technician RN at bedside. Patient resting in bed, respirations are even and unlabored. Call light within reach.
--- NOTE | 2018-06-13 08:08 | NUR ---
PATIENT CONTINUES TO REST, RESPIRATIONS ARE EVEN AND UNLABORED. LUNG CLEAR IN BILATERAL LOWER AND UPPER LOBES. S1 AND S2 NOTED. PATIENT ON COMFORT CARE, FAMILY REQUESTS THAT NURSING STAFF ALLOW PATIENT TO CONTINUE SLEEPING AND WAIT TO ADMINISTER OXYCODONE HCL EXTENDD RELEASE UNTIL PATIENT WAKES UP ON HIS OWN.
--- NOTE | 2018-06-13 10:10 | NUR ---
TALKED WITH PT SON SHANT AND BROTHER CHERYL AND OTHER FAMILY MEMBERS I WAS TOLD THEY WANTED TO TALK WITH ME. SHANT STARTED THE CONVERSATION OFF STATING THAT THEY DID NOT FEEL THEY WOULD BE ABLE TO CARE FOR THE PT AT HOME (MOTHER'S HOME) THEY STATED THEY DID NOT FEEL THEY WERE ABLE TO DO THE CARE-DON'T FEEL LIKE THEY KNOW HOW TO DO OR WHAT TO DO IS SOMETHING HAPPENS SAY IF HE HEMMORRHAGED OR SOMETHING LIKE THAT SO THEY WOULD RATHER HE GO TO A [facility]. I TOLD THEM THAT GENERALLY HIS INSURANCE WOULD NOT PAY FOR THE [facility] FOR COMFORT CARE, BUT THAT WE COULD CHECK. I ALSO TOLD THEM I COULD CHECK WITH A COUPLE OF THE ASSISTED LIVINGS THAT COULD GENERALLY STAFF TO CARE FOR A HOSPICE PT, BUT THAT THE INSURANCE DOESN'T GENERALLY PAY FOR THOSE FACILITIES ALSO. TOLD THEM THAT HOSPICE DOES FOLLOW PTS IN THE ASSISTED LIVING FACILITIES BUT NOT IN THE [facility].
--- NOTE | 2018-06-13 10:22 | NUR ---
PATIENT CONTINUES TO SLEEP, RESPIRATIONS EVEN AND UNLABORED AT THIS TIME. FAMILY IN ROOM WITH PATIENT. NOTIFIED FAMILY TO USE CALL LIGHT IF PATIENT BEGINS EXPERIENCING PAIN OR REQUIRES ADDITIONAL NEEDS.
--- NOTE | 2018-06-13 10:46 | NUR ---
ADULT PROTECTIVE SERVICES IN ROOM WITH PATIENT AND FAMILY.
--- NOTE | 2018-06-13 11:15 | NUR ---
LEFT A MESSAGE FOR SERA CARDENAS OF [facility] TO CALL TO SEE IF SHE HAD ANY BEDS AVAILABLE FOR PT IN HOSPICE NEAR END OF LIFE SHE DIDN'T ANSWER THE PHONE. CALLED AND SPOKE WITH MARIAM STORM REGARDING THIS PT AND THE NEED FOR A BED FOR HIS CARE AND END OF LIFE/HOSPICE CARE. SHE STATED THEY HAVE A BED. COST OUT OF POCKET FOR END OF LIFE IS $150/DAY HAS TO HAVE 10 DAYS PAID IN ADVANCE, SHE ALSO SUGGESTED I CALL AND GET [employer] STARTED ON AN EMERGENCY ASSISTANCE TO ASSIST IN PAYING FOR THIS. I TALKED WITH THE FAMILY AND GAVE THEM THIS INFORMATION AND THEY THOUGHT THIS WAS A GOOD ANSWER TO WHAT THEY NEED. SO I LEFT THEM TO THINK THIS OVER AND WOULD CHECK WITH THEM LATER
--- NOTE | 2018-06-13 12:15 | NUR ---
PATIENT CONTINUES TO SLEEP, RESPIRATIONS ARE EVEN AND UNLABORED. FAMILY IN ROOM WITH PATIENT. FAMILY REQUESTS THAT PATIENT NOT BE WOKEN UP AND ALLOWED TO CONTINUE SLEEPING. PATIENT APPEARS COMFORTABLE, LYING ON RIGHT LATERAL.
--- NOTE | 2018-06-13 12:45 | NUR ---
KATARZYNA MCDANIEL/HONEY CALLED AND SPOKE WITH THE PT INSURANCE COMPANY AND CHECKING TO SEE IF THEY WOULD COVER HIM GOING TO A SNF FOR END OF LIFE. SHE RECEIVED A CALL REFERENCE NUMBER (SEE BAR) REGARDING PT BEING GRANTED A 7 DAY STAY AT [facility] AFTER [facility] APPROVAL OF CHART NOTES.
--- NOTE | 2018-06-13 13:05 | NUR ---
TALKED WITH CHERYL BRAN, AND ANOTHER PERSON REGARDING THE POSSIBLITY OF THE PT BEING ABLE TO GO TO [facility] FOR COMFORT CARE. THEY WERE APPRECIATIVE OF THIS.
--- NOTE | 2018-06-13 14:05 | NUR ---
CALLED AND TALKED WITH GARIMA FROM [facility] REGARDING THIS PT AND SHE STATED THEY WOULD NEED INFORMATION FROM THE INSURANCE COMPANY AND CHART PACK FROM US. FAXED CHART PACK INCLUDING FACESHEET, ER NOTES, H AND P, PROG NOTES, IMAGING, LABS, AND MEDICATIONS. RECIEVED A FAX CONFIRMATION OF THIS.
--- NOTE | 2018-06-13 14:09 | NUR ---
PATIENT'S FAMILY REQUESTING PAIN/ANXIETY MEDICATION FOR PATIENT COMFORT, PATIENT SPEAKING WHEN THIS RN ARRIVED IN THE ROOM, UNABLE TO UNDERSTAND WHAT HE WAS SAYING. 1MG OF IV ATIVAN GIVEN AT THIS TIME.
--- NOTE | 2018-06-13 14:24 | NUR ---
FAMILY PRESENT, SON AND BROS WORKING THROUGH CARE. AT THIS MOMENT PLAN IS TO TRANS TO [facility] ON COMFORT CARE. VISITED WITH MOTHER IN AND MET DAUGHTER JONNY. SHE IS STRUGGLING, AND COUNSELLED HER FOR A MOMENT. SPOKE TO PT HE DID TRY TO RESPOND, OPENED EYES. EXTENDED BLESSING, WILL FOLLOW NEEDED
--- NOTE | 2018-06-13 14:45 | NUR ---
JUST GOT OFF THE PHONE WITH [employer], AGING AND PEOPLE WITH DISABLILITIES ASKING FOR AN EMERGENT EVAL FOR HELICOPTER REPAIRER CARE FROM [facility]. SHE STATED SHE WILL TRY TO SEE THE PT TOMORROW, I TOLD HER WE WERE ATTEMPTING TO GET HIM INTO THE SNF TODAY, SHE SAID SHE WOULD TALK TO GARIMA ABOUT COMING OUT TOMORROW TO SEE HIM. SHE ALSO REQUESTED I SEND CHART NOTES WHICH WERE FAXED INCLUDING FACESHEET, ER NOTES, H AND P, PROG NOTES, IMAGING, LABS AND MEDICATIONS. RECIEVED A FAX CONFIRMATION REGARDING THIS.
--- NOTE | 2018-06-13 15:00 | NUR ---
MARGARITA ZUNIGA FROM [employer] CALLED AND STATED THAT SHE TALKED WITH THE PT FAMILY AND WITH THE PT GIRLFRIEND--WHO BY THE WAY THOUGHT SHE WAS THERE BECAUSE SHE HADN'T CUT PT FINGERNAILS OR WASHED HIS HAIR. SHE STATED THE GIRLFRIEND IS CONT TO CLEAN HER HOME FOR HIM TO COME HOME TO. MARGARITA WAS ASKING WHAT THE DC PLAN WAS. I TOLD HER THAT THE PT FAMILY HAS TOLD US THAT THEY WILL HANDLE ALL INFORMATION BEING LET OUT ABOUT THE PT TO ANYONE THAT CALLS, WE WERE JUST TO TELL PEOPLE THIS AND NOT ANSWER QUESTIONS ON THE PHONE. I TOLD MARGARITA THE PLAN IS TO HAVE PT EITHER PLACED IN [facility] ON COMFORT CARE OR TO [facility] FOR HOSPICE CARE.
--- NOTE | 2018-06-13 15:10 | NUR ---
PATIENT SLEEPING IN BED, APPEARS COMFORTABLE. RESPIRATIONS ARE EVEN AND UNLABORED. FAMILY IN ROOM WITH PATIENT.
--- NOTE | 2018-06-13 16:30 | NUR ---
PATIENT CONTINUES TO SLEEP, RESPIRATIONS ARE EVEN AND UNLABORED. FAMILY IN ROOM WITH PATIENT.FAMILY DENIES CONCERNS OR REQUESTS AT THIS TIME.
--- NOTE | 2018-06-13 18:14 | NUR ---
PT FAMILY REPORTING THAT PT HAD AWOKEN, CRIED OUT FOR HELP, STATED WAS IN PAIN AND WAS UNABLE TO PRESS LEADERSHIP DEVELOPMENT MANAGER BUTTON. DISCUSSED PAIN AND AGGITATION WITH FAMILY, FAMILY REQUESTING FOR PT TO RECEIV IV ATIVAN, 1MG IV ATIVAN GIVEN PER ORDER. PT REPOSITIONED IN BED. OCCASIONAL MOAN, MOVING QUIETLY. FAMILY REMAIBNS AT BEDSIDE.
--- NOTE | 2018-06-13 18:41 | NUR ---
PATIENT HAD UNREMARKABLE DAY, SLEPT FOR THE MAJORITY OF THE SHIFT. MORNING DOSE OF SCHEDULED PAIN MEDICATION WAS HELD PER FAMILY WISHES TO NOT WAKE PATIENT. ATIVAN WAS ADMINISTERED AROUND 1820. PATIENT CONTINUES TO REST, RESPIRATIONS REMAIN EVEN AND UNLABORED THROUGHOUT SHIFT. FAMILY HAS REMAINED WITH PATIENT.
--- NOTE | 2018-06-13 20:00 | NUR ---
AWAKENS EASILY, MOVES ARMS W/O PROBLEMS. CONTINUES TO DECLINE ORAL INTAKE. LUNGS DIMINISHED AT BASES, ON ROOM AIR, SATS 95%. MOUTH CARE DONE. BATTERY CONTAINER INSPECTOR INFUSING W/O PROBLEMS, . MOVES IN BED. F/C PATENT WITH CONCENTRATED YELLOW URINE. PT ON COMFORT CARE. FAMILY IN ROOM
--- NOTE | 2018-06-13 21:12 | NUR ---
PT MOANING, NEW PILOT PLANT OPERATOR CARTRIDGE PLACEN IN PILOT PLANT OPERATOR. PT PUSHED BUTTON, ANSWERS APPROPARIATELY, F/C PATENT, IVF PATENT, TURNED, FAMILY IN ROOM
--- NOTE | 2018-06-13 22:00 | NUR ---
UNABLE TO GIVE OXYCONTIN PT IS DECLINING ORAL INTAKE. BEGINING TO GET A LITTLE RESTLESS, SAYING "SAVE ME, SAVE ME", WILL MEDICATE, TURNS SELF IN BED, F/C PATENT. CONTINUES ON ROOM AIR, FAMILY AT BEDSIDE
--- NOTE | 2018-06-13 22:11 | NUR ---
RESTLESS, MOANING, "HELP ME, HELP ME", MEDICATED WIRH ATIVAN 1MG IV. FAMILY AT BEDSIDE, PT RESP 16
--- NOTE | 2018-06-14 05:15 | NUR ---
Resting, no distress ntoed, DISTRIBUTION ASSOCIATE/IV patent, f/c patent, draining yellow urine, low output. Pt still declining po intake.
--- NOTE | 2018-06-14 05:20 | NUR ---
PT CONTINUES TO COMFORT CARE ONLY STATUS . CONTINUE TO DECLINE ORAL INTQAKE, SCHEDULED MEDS NOT GIVEN PT IS NOT TAKING ORAL INTAKE. TURNS SELF IN BED F.C PATEND WITH LOW OUTPUT. CHIEF DEVELOPMENT OFFICER WAS USED BY PT. rECEIVED ONE DOSE OF ATIVAN IV PER INCREASED ANXIETY, WAS EFFECTIVE. NO RESP DISTRESS. FAMILY IN ROOM
--- NOTE | 2018-06-14 06:46 | NUR ---
resting, comfortable, no resp distress. moves in bed, manager motor/ivf patent. flc patend, draining dark yellow urine
--- NOTE | 2018-06-14 08:05 | NUR ---
PATIENT RESTING IN BED, EYES CLOSED. FAMILY IN ROOM. NO OTHER NEEDS AT THIS TIME.
--- NOTE | 2018-06-14 08:25 | NUR ---
PT RESTING IN BED AT THIS TIME WITH FAMILY AT BEDSIDE. EYES CLOSED, INTERMITTENTLY "FLAILING ARMS" PER FAMILY. I OBSERVED AT THIS TIME PT MOANING INTERMITTENTLY AND TURNING HIS HEAD; LAST DOSE OF IV ATIVAN GIVEN AT THIS TIME TO HELP WITH COMFORT BEFORE SWITCHING TO SUBLINGUAL ATIVAN. PT DROWSY, LETHARGIC, MEDICATED. DIAMOND SIZER IN PLACE. EDUCATION GIVEN TO FAMILY AT BEDSIDE IN REGARDS TO END OF LIFE CARE AND WHAT TO EXPECT IN DYING PROCESS. PLAN OF CARE REVIEWED AND FAMILY IN AGREEANCE WITH PLAN. SKIN CARE PROVIDED. REPOSITIONING COMPLETED. PT'S ABDOMIN APPEARS MODERATELY DISTENDED. CALL LIGHT WITHIN REACH OF PT AND FAMILY WELL DIAMOND SIZER BUTTON. BED ALARM AND FALL PREVENTION PRECAUTIONS IN PLACE. WILL CONTINUE TO CLOSELY MONITOR COMFORT IS MAIN PRIORITY FOR PT.
--- NOTE | 2018-06-14 10:25 | NUR ---
PT RESTING IN BED WITH FAMILY AT BEDSIDE. PT STILL SHOWING NONVERBAL SIGNS OF PAIN WITH INTERMITTENT ARM FLAILING AND MOANING. NEW ORDERS OF SL MORPHINE AND ATIVAN ARE IN CHART BY MD; GIVING A DOSE OF EACH AT THIS TIME. FURTHER EDUCATION GIVEN ON ATIVAN AND MORPHINE TO FAMILY. THEY STTATED THEIR UNDERSTANDING AND AGREED WITH PLAN OF CARE. PLAN IS TO CONTINUE A FEW DOSES OF MORPHINE SL PRN ORDERED TO REACH NONVERBAL SIGNS OF COMFORT. CALL LIGHT WITHIN BOTH PT AND FAMILY REACH. BED ALARM AND FALL PRECAUTIONS REMAIN IN PLACE. WILL CONTINUE TO MONITOR.
--- NOTE | 2018-06-14 10:51 | NUR ---
TALKED TO GARIMA FROM [facility] SHE STATES THAT [facility] FROM [facility] WILL BE HERE AROUND 1030 TO EVALUATE PT FOR HALF-WAY MEDICAID. IN CASE [facility] DOESN'T PAY. ALSO RECIEVED CALL FROM [facility], STATING THEY WOULDN'T PAY IF HOSPICE COULDN'T COME IN. THEN GARIMA CALLED STATED PT WAS APPROVED TO COME AFTER ORDERS ARE SENT.
[2018-06-14] MEDS ORDERED: LORAZEPAM INT2 MG/ML SL (10:56)
[2018-06-14] MEDS ORDERED: NATURAL BALANCE15 M1 OU (10:57)
[2018-06-14] MEDS ORDERED: ATROPINE SULFATE2 ML SL (10:57)
--- NOTE | 2018-06-14 11:08 | NUR ---
SECOND DOSE OF SL MORHPINE GIVEN AT THIS TIME; PT NONVERBAL CUES APPEAR TO BE IMPROVING; PT APPEARS TO BE MORE COMFORTABLE AT THIS TIME. I WILL CONTINUE WITH THIS PLAN OF CARE OF A FEW LOADING DOSES OF SL MORPHINE. FAMILY AGREES WITH THIS PLAN. PT NO LONGER MOANING INTERMITTENTLY. CALL LIGHT WITHIN PT AND FAMILY REACH. PT REPOSITIONED WITH PILLOW SUPPORT AT THIS TIME WELL. FAMILY ASKING QUESTIONS IN REGARDS TO PT'S COLD BILATERAL FEET; EDUCATION GIVEN ON END OF LIFE PROCESS. WILL CONTINUE TO MONITOR AND GIVE A THIRD DOSE OF SL MORPHINE WITHIN HOUR.
--- NOTE | 2018-06-14 11:18 | NUR ---
FAXED ORDERS AND PASRR TO [facility], RECIEVED FAX CONFIRMATION.
[2018-06-14] MEDS ORDERED: MORPHINE S100 MG/5 M SL (11:27)
[2018-06-14] MEDS ORDERED: FENTANYL1 EAC1 TD (11:58)
--- NOTE | 2018-06-14 12:00 | NUR ---
3RD DOSE OF SL MORPHINE GIVEN TO PT AT THIS TIME PRIOR TO GETTING BED BATH. PT APPEARS COMFORTABLE. FAMILY AT BEDSIDE. CALL LIGHT WITHIN REACH. BED LOCKED AND FALL PRECAUTIONS IN PLACE. WILL CONTINUE TO MONITOR.
--- NOTE | 2018-06-14 12:21 | NUR ---
THIS LAUNDRY LABORER AND APPLICATION PROGRAMMER ANALYST ASSISTED TO GIVE PATIENT A COMPLETE BED BATH. THIS LAUNDRY LABORER PERFORMED CATH CARE AND PERICARE. RN ASSISTED PATIENT WITH SHAMPOOING HAIR. PATIENT DRESSED IN CLEAN CLOTHES AND ATTENDS AND IS RESTING IN BED, CALL LIGHT IN REACH. FAMILY IN ROOM. NO OTHER NEEDS AT THIS TIME.
--- NOTE | 2018-06-14 13:05 | NUR ---
DOSES OF MORPHINE AND ATIVAN GIVEN AT THIS TIME PRIOR TO TRANSPORTATION. PT APPEARS COMFORTABLE; FAMILY AT BEDSIDE.
--- NOTE | 2018-06-17 07:00 | NUR ---
PT BEING PREPPED FOR TRANSFER TO [facility] ON COMFORT CARE. MUCH OF HIS FAMILY PRESENT. MOTHER AND BROS RATHER STOIC, DAUGHTER EMOTIONAL. FAMILY APPEARS TO BE WORKING THROUGH ALL OF THE INS ISSUES, KATARZYNA AND ENMANUEL HAVE WORKED VERY HARD ASSISTING FAMILY. TRANSFER TO EMT GURNEY PAINFUL ON PT, DIFFICULT FOR FAMILY. PRAYED FOR PT AND FAMILY, WILL BE AVAILABLE NEEDED
== END 2018-06-14 13:15 | disposition hospice, inpatient (51) ==
LOC: ED 23:28 → MS 23:31
PROVIDERS: ADMIT Student in an Organized Health Care Education/Training Program
DX: C20 Malignant neoplasm of rectum (principal); C78.7 Secondary malignant neoplasm of liver and intrahepatic bile duct; C78.00 Secondary malignant neoplasm of unspecified lung; R64 Cachexia; Z51.5 Encounter for palliative care; Z87.891 Personal history of nicotine dependence; Z88.1 Allergy status to other antibiotic agents; Z79.891 Long term (current) use of opiate analgesic; Z79.52 Long term (current) use of systemic steroids; Z79.899 Other long term (current) drug therapy
CPT/HCPCS: 74022; 80053; 81001; 83690; 85025; 96361; 96374; 96375; 96376; 99285; G0378; J1100; J1170; J2060; J2270; J2354; J2405; J7030